=== PATIENT | female | born 1950 | race African-American/Black ===

== ENCOUNTER 2019-01-16 18:56 | Observation (INO) ==
[2019-01-16 19:19] LABS: Basophils % 0.3 % (0.0-0.8); Eosinophils # 0.1 10*3/uL (0.0-0.87); Eosinophils % 1.4 % (0.00-10.9); Hematocrit 40.5 VOL% (35.7-47.0); Hemoglobin 12.7 GM/DL (12.0-16.0); Immature Granulocytes % 0.4 %; Immature Granulocytes Absolute 0.03 #; Lymphocytes # 2.7 10*3/uL (1.4-4.0); Lymphocytes % 34.1 % (21.3-54.2); Mean Corpuscular HGB Conc 31.4 GM/DL (32-36); Mean Corpuscular Volume 85.8 FL (87-102); Mean Platelet Volume 9.9 FL (9.6-12.0); Monocytes % 6.8 % (1.7-12.7); Platelet Count 252 T/CUMM (130-400); Red Blood Count 4.72 MC/CUMM (3.8-5.5); Red Cell Distribution Width 13.7 % (9.3-17.3); White Blood Count 7.9 T/CUMM (4-12)
[2019-01-16 19:37] LABS: Alanine Aminotransferase 19 U/L (13-56); Albumin 3.7 G/DL (3.4-5.0); Alkaline Phosphatase 82 U/L (45-117); Aspartate Amino Transferase 11 U/L (0-37); Bilirubin,Total < 0.39 MG/DL (0.2-1.0); Blood Urea Nitrogen 13 MG/DL (7-18); Calcium 9.2 MG/DL (8.5-10.1); Estimated Glom Filtration Rate 67 ML/MIN; Glucose 115 MG/DL (74-106); Osmolality,Calculated 279.4 MOS/KG (273-304); Total Protein 7.8 G/DL (6.4-8.3)
[2019-01-16] MEDS ORDERED: hydrALAZINE 20 MG/1 ML VIAL ONE (19:43)
[2019-01-16] MEDS ORDERED: ASPIRIN 325 MG TABLET ONE (19:43)
[2019-01-16] MEDS ORDERED: hydrALAZINE 20 MG/1 ML VIAL IV STA (19:45)
[2019-01-16] MEDS ORDERED: ASPIRIN EC 325 MG TABLET PO STA (19:45)
[2019-01-16] MEDS ORDERED: NITROGLYCERIN SL 0.4 MG TABLET SL ONE (20:44)
[2019-01-16] MEDS ORDERED: NITROGLYCERIN SL 0.4 MG TABLET SL STA (20:48)
[2019-01-16 20:59] LABS: Apearance,Urine CLEAR (Clear); Bilirubin,Urine Negative (Negative); Blood, Urine Negative (Negative); Glucose,Urine (UA) Negative (Negative); Ketones,Urine Negative (Negative); Mucus,Urine Occasional /LPF (Occasional); Nitrite,Urine Negative (Negative); Protein,Urine Negative; RBC,Urine 2 /HPF (0-4); Squamous Epithelial Cell,Urine Occasional /HPF (0-10); Urine Color Straw (Yellow); Urine Specific Gravity 1.005 (1.001-1.035); Urine Urobilinogen < 2.0 EU/DL (0.2-1.0); WBC,Urine 1 /HPF (0-6)
[2019-01-16 21:16] LABS: Barbiturates Screen,Urine Negative (Negative); Benzodiazepines Screen,Urine Negative (Negative); Cannabinoid Screen,Urine Negative (Negative); Opiate Screen,Urine Negative (Negative); Phencyclidine Screen,Urine Negative (Negative)
[2019-01-16] MEDS ORDERED: hydrALAZINE 20 MG/1 ML VIAL IV PRN (21:45)
[2019-01-16] MEDS ORDERED: ACETAMINOPHEN 325 MG TABLET PO PRN (21:45)
[2019-01-16] MEDS ORDERED: ZALEPLON 5 MG CAPSULE PO PRN (21:45)
[2019-01-16] MEDS ORDERED: MORPHINE 4 MG/1 ML VIAL IV PRN (21:45)
[2019-01-16] MEDS ORDERED: DOCUSATE SODIUM 100 MG CAPSULE PO PRN (21:45)
[2019-01-16] MEDS ORDERED: ONDANSETRON 4 MG/2 ML VIAL IV PRN (21:45)
[2019-01-16] MEDS ORDERED: NITROGLYCERIN SL 0.4 MG TABLET SL PRN (21:45)
[2019-01-16] MEDS: ENOXAPARIN 80 MG/0.8 ML SYRINGE SUBCUT SCH (22:30)
[2019-01-17 04:43] LABS: Basophils % 0.2 % (0.0-0.8); Eosinophils # 0.1 10*3/uL (0.0-0.87); Eosinophils % 1.1 % (0.00-10.9); Hematocrit 39.2 VOL% (35.7-47.0); Hemoglobin 12.5 GM/DL (12.0-16.0); Immature Granulocytes % 0.2 %; Immature Granulocytes Absolute 0.02 #; Lymphocytes % 23.9 % (21.3-54.2); Mean Corpuscular HGB Conc 31.9 GM/DL (32-36); Mean Corpuscular Volume 84.8 FL (87-102); Mean Platelet Volume 11.4 FL (9.6-12.0); Monocytes % 7.2 % (1.7-12.7); Neutrophils % 67.4 % (38.7-73.9); Platelet Count 263 T/CUMM (130-400); Red Blood Count 4.62 MC/CUMM (3.8-5.5); Red Cell Distribution Width 13.8 % (9.3-17.3); White Blood Count 8.2 T/CUMM (4-12)
[2019-01-17 05:24] LABS: Risk Ratio 3.55; Thyroid Stimulating Hormone 1.71 uIU/ml (0.358-3.74); VLDL CHOLESTEROL 16.2 MG/DL
[2019-01-17 09:07] LABS: Troponin I 0.083 NG/ML (0.00-0.045)
[2019-01-17] MEDS: LOSARTAN 25 MG TABLET PO SCH (09:55)
[2019-01-17] MEDS: ASPIRIN EC 81 MG TABLET PO SCH (09:55)
[2019-01-17] MEDS: ENOXAPARIN 80 MG/0.8 ML SYRINGE SUBCUT SCH ×2 (09:56→23:01)
[2019-01-17] MEDS ORDERED: ATORVASTATIN 40 MG TABLET PO SCH (21:00)
[2019-01-18] MEDS: LOSARTAN 25 MG TABLET PO SCH (08:31)
[2019-01-18] MEDS: ASPIRIN EC 81 MG TABLET PO SCH (08:31)
[2019-01-18] MEDS: ENOXAPARIN 80 MG/0.8 ML SYRINGE SUBCUT SCH (09:19)
[2019-01-18 11:07] VITALS: BP 114/81
== END 2019-01-18 14:08 | disposition home or self-care (01) ==
LOC: N.EDINP 18:56 → N.ED 18:56 → N.CC 21:37 → N.TELEN 01-17 16:09
PROVIDERS: ADMIT Internal Medicine; ATTEND Internal Medicine

== ENCOUNTER 2022-03-07 10:21 | Observation (INO) ==
[2022-03-07] MEDS ORDERED: ASPIRIN 325 MG TABLET PO STA (11:41)
[2022-03-07] MEDS ORDERED: ENOXAPARIN 80 MG/0.8 ML SYRINGE SUBCUT STA (11:43)
[2022-03-07 11:46] LABS: Basophils % 0.3 % (0.0-0.8); Eosinophils # 0.1 10*3/uL (0.0-0.87); Eosinophils % 1.4 % (0.00-10.9); Hematocrit 41.4 VOL% (35.7-47.0); Hemoglobin 13.3 GM/DL (12.0-16.0); Immature Granulocytes % 0.3 %; Immature Granulocytes Absolute 0.02 #; Lymphocytes # 1.8 10*3/uL (1.4-4.0); Mean Corpuscular HGB Conc 32.1 GM/DL (32-36); Mean Corpuscular Volume 83.3 FL (87-102); Mean Platelet Volume 10.5 FL (9.6-12.0); Monocytes # 0.4 10*3/uL (0.11-0.8); Monocytes % 5.9 % (1.7-12.7); Neutrophils % 66.1 % (38.7-73.9); Platelet Count 301 T/CUMM (130-400); Red Blood Count 4.97 MC/CUMM (3.8-5.5); Red Cell Distribution Width 14.5 % (9.3-17.3)
[2022-03-07 12:07] LABS: Calcium 9.3 MG/DL (8.5-10.1); Osmolality,Calculated 278.4 MOS/KG (273-304); Potassium 3.8 MMOL/L (3.5-5.1)
[2022-03-07] MEDS ORDERED: ACETAMINOPHEN 325 MG TABLET PO PRN (14:12)
[2022-03-07] MEDS ORDERED: ONDANSETRON 4 MG/2 ML VIAL IV PRN (14:12)
[2022-03-08 07:12] LABS: Basophils % 0.5 % (0.0-0.8); Eosinophils # 0.2 10*3/uL (0.0-0.87); Eosinophils % 2.6 % (0.00-10.9); Hematocrit 37.3 VOL% (35.7-47.0); Hemoglobin 11.7 GM/DL (12.0-16.0); Immature Granulocytes % 0.2 %; Immature Granulocytes Absolute 0.01 #; Lymphocytes # 2.2 10*3/uL (1.4-4.0); Lymphocytes % 34.6 % (21.3-54.2); Mean Corpuscular HGB Conc 31.4 GM/DL (32-36); Mean Corpuscular Volume 83.4 FL (87-102); Mean Platelet Volume 10.4 FL (9.6-12.0); Monocytes # 0.5 10*3/uL (0.11-0.8); Monocytes % 7.4 % (1.7-12.7); Neutrophils % 54.7 % (38.7-73.9); Platelet Count 279 T/CUMM (130-400); Red Blood Count 4.47 MC/CUMM (3.8-5.5); Red Cell Distribution Width 14.7 % (9.3-17.3); White Blood Count 6.3 T/CUMM (4-12)
[2022-03-08 07:46] LABS: Albumin 3.5 G/DL (3.4-5.0); Bilirubin,Total 0.4 MG/DL (0.20-1.00); Osmolality,Calculated 279.4 MOS/KG (273-304); Risk Ratio 3.31; Thyroid Stimulating Hormone 1.22 uIU/ml (0.358-3.74); Total Protein 7.2 G/DL (6.4-8.2); VLDL Cholesterol 13.8 MG/DL
[2022-03-08 08:05] VITALS: BP 134/80
[2022-03-08] MEDS: ASPIRIN CHEW 81 MG TABLET PO SCH ×2 (09:26→10:24)
[2022-03-08] MEDS: ENOXAPARIN 40 MG/0.4 ML SYRINGE SUBCUT SCH ×2 (09:27→10:25)
[2022-03-08] MEDS ORDERED: ATORVASTATIN 40 MG TABLET PO SCH (21:00)
== END 2022-03-08 10:51 | disposition home or self-care (01) ==
LOC: N.ED 10:21 → N.TELES 10:21 → SUATTDRO 14:12 → N.TELES 16:12
PROVIDERS: ADMIT Internal Medicine; ATTEND Family Medicine